=== PATIENT | female | born 1980 | race Asian ===

== ENCOUNTER 2017-10-13 08:58 | Inpatient (IN) | payer SELFPAY ==
[~2017-10-13] VITALS: Ht 165.1 cm; Wt 77.6 kg
[2017-10-13] MEDS ORDERED: IBUPROFEN 800 MG TAB PO PRN ×2 (09:40→11:00)
[2017-10-13 09:57] VITALS: BP 98/65
[2017-10-13] MEDS: LACTATED RINGERS 1,000 ML IV SCH ×2 (10:10→11:22)
[2017-10-13 10:18] LABS: HEMATOCRIT 40.3 % (36-48); HEMOGLOBIN 13.2 g/dL (12.0-16.0); MEAN CORPUSCULAR HEMOGLOBIN 27 pg (27-31); MEAN CORPUSCULAR HGB CONC 33 g/dL (33-37); MEAN CORPUSCULAR VOLUME 83.3 fL (80-94); PLATELET COUNT (AUTO) 245 K/uL (140-450); RED BLOOD CELL COUNT(AUTO) 4.84 MIL/uL (4.20-5.40); RED CELL DISTRIBUTION WIDTH 13.8 % (11.6-13.7); WHITE BLOOD COUNT (AUTO) 19.1 K/uL (4.8-10.8)
[2017-10-13 10:18] LABS: APPEARANCE,URINE TURBID (CLEAR); BILIRUBIN,URINE 1+ (NEGATIVE); COLOR,URINE YELLOW (YELLOW); LEUKOCYTE ESTERASE ,URINE NEGATIVE (NEGATIVE); NITRITE, URINE NEGATIVE (NEGATIVE); UGLUCOSE NEGATIVE (NEGATIVE)
[2017-10-13 10:30] LABS: ANION GAP 15.6 (8-16); CARBON DIOXIDE 18.9 mmol/L (21-32); CREATININE 0.6 mg/dL (0.6-1.3); POTASSIUM 3.5 mmol/L (3.5-5.1)
[2017-10-13 10:37] LABS: ALBUMIN 2.8 g/dL (3.4-5.0); TOTAL BILIRUBIN 1.3 mg/dL (0.0-1.0)
[2017-10-13 10:44] LABS: LYMPHOCYTES % (MANUAL) 5 % (20-46); MONOCYTES % (MANUAL) 4 % (5-12)
[2017-10-13] MEDS ORDERED: oxyCODONE/APAP 5/325 MG 1 TAB TAB PO PRN (11:00)
[2017-10-13] MEDS ORDERED: MEASLES, MUMPS, AND RUBELLA 1 VIAL SQVAC PRN (11:00)
[2017-10-13] MEDS ORDERED: SIMETHICONE 80 MG TAB.CHEW PO PRN (11:00)
[2017-10-13] MEDS ORDERED: METHYLERGONOVINE 0.2 MG/ML AMP IM PRN (11:00)
[2017-10-13] MEDS ORDERED: TRIMETHOBENZAMIDE 200 MG/2 ML SYR IM PRN (11:00)
[2017-10-13 11:26] LABS: BLOOD, URINE 1+ (NEGATIVE); RBC,URINE 0-5 (RARE) /HPF (0-5); WBC,URINE 0-5 (RARE) /HPF (0-5)
[2017-10-13] MEDS ORDERED: TRIAMCINOLONE 10 MG/ML 5ML VIAL ONE (11:35)
[2017-10-13] MEDS ORDERED: OXYTOCIN 10 UNITS/ML VIAL ONE (11:35)
[2017-10-13] MEDS ORDERED: MIDAZOLAM 2 MG/2 ML VIAL ONE (11:47)
[2017-10-13] MEDS ORDERED: BUPIVACAINE/DEXT 0.75% SPINAL 2 ML AMP INJ ONE (11:47)
[2017-10-13] MEDS ORDERED: MORPHINE PRES FREE 2 MG/2 ML 2 mL UD SYRINGE ONE (11:47)
[2017-10-13] MEDS ORDERED: OXYTOCIN 20 UNITS/LR PREMIX 1,000 ML IV ONE (11:53)
[2017-10-13] MEDS ORDERED: diphenhydrAMINE 50 MG/ML VIAL ONE (11:53)
[2017-10-13] MEDS ORDERED: ceFAZolin 1,000 MG VIAL IVP ONE (12:00)
[2017-10-13] MEDS ORDERED: OXYTOCIN 20 UNITS in LACTATED RINGERS 1,000 ML IV SCH (12:00)
[2017-10-13] MEDS ORDERED: CEFAZOLIN SODIUM 2 GM/D5W PM 50 ML IV SCH (12:00)
[2017-10-13] MEDS ORDERED: NALOXONE 0.4 MG/ML VIAL IVP PRN ×3 (12:20)
[2017-10-13] MEDS ORDERED: ONDANSETRON 4 MG/2 ML VIAL IVP PRN ×2 (12:20)
[2017-10-13] MEDS ORDERED: NALBUPHINE 10 MG/ML AMP IVP PRN (12:20)
[2017-10-13] MEDS ORDERED: MEPERIDINE 25 MG/ML SYR IVP PRN (12:20)
[2017-10-13] MEDS ORDERED: diphenhydrAMINE 50 MG/ML VIAL IVP PRN ×2 (12:20)
[2017-10-13] MEDS ORDERED: HYDROmorphone 1 MG/ML AMP IVP PRN (12:20)
[2017-10-13] MEDS ORDERED: ONDANSETRON 4 MG/2 ML VIAL ONE (12:49)
[2017-10-13] MEDS: OXYTOCIN 20 UNITS in LACTATED RINGERS 1,000 ML IV SCH ×2 (12:53→16:48)
[2017-10-13 13:15] LABS: PROTHROMBIN TIME 10.2 secs (10.8-13.4)
[2017-10-13] MEDS: DOCUSATE SOD/SENNA 50/8.6 MG 1 TAB PO SCH (20:04)
[2017-10-13] MEDS ORDERED: TEMAZEPAM 15 MG CAP PO PRN (21:00)
[2017-10-14] MEDS: KETOROLAC 30 MG/ML VIAL IM/IVP SCH ×2 (00:01→06:00)
[2017-10-14] MEDS ORDERED: OXYTOCIN 20 UNITS/LR PREMIX 1,000 ML IV ONE (00:53)
[2017-10-14] MEDS: OXYTOCIN 20 UNITS in LACTATED RINGERS 1,000 ML IV SCH ×2 (00:54→09:17)
[2017-10-14] MEDS ORDERED: OXYTOCIN 10 UNITS/ML VIAL ONE (09:13)
[2017-10-14 09:47] LABS: HEMATOCRIT 33.5 % (36-48); HEMOGLOBIN 10.8 g/dL (12.0-16.0); MEAN CORPUSCULAR HEMOGLOBIN 27 pg (27-31); MEAN CORPUSCULAR HGB CONC 32 g/dL (33-37); MEAN CORPUSCULAR VOLUME 83.9 fL (80-94); PLATELET COUNT (AUTO) 200 K/uL (140-450); RED CELL DISTRIBUTION WIDTH 13.8 % (11.6-13.7); WHITE BLOOD COUNT (AUTO) 19.6 K/uL (4.8-10.8)
[2017-10-14 10:34] LABS: BASOPHILS % (MANUAL) 0 % (0-2); EOSINOPHILS % (MANUAL) 0 % (0-4); LYMPHOCYTES % (MANUAL) 6 % (20-46); MONOCYTES % (MANUAL) 7 % (5-12)
[2017-10-14] MEDS: DOCUSATE SOD/SENNA 50/8.6 MG 1 TAB PO SCH (20:46)
--- NOTE | 2017-10-15 10:16 | NUR ---
PATIENT HAS BEEN SCREENED AND CATEGORIZED LOW NUTRITION RISK. PATIENT WILL BE SEEN WITHIN 7 DAYS OF ADMISSION. 10/19/[address]
[2017-10-15] MEDS: HYDROcodone/APAP 5/325 MG 1 TAB TAB PO PRN ×2 (11:37→20:21)
[2017-10-15] MEDS ORDERED: SODIUM PHOSPHATE 118 ML ENEM RC PRN (11:45)
[2017-10-15] MEDS: DOCUSATE SOD/SENNA 50/8.6 MG 1 TAB PO SCH (21:00)
[2017-10-16] MEDS: HYDROcodone/APAP 5/325 MG 1 TAB TAB PO PRN ×2 (03:33→11:08)
== END 2017-10-16 16:30 | disposition home or self-care (01) | DRG 765 ==
LOC: MLD 08:58 → MFCC 13:30
PROVIDERS: ADMIT Obstetrics & Gynecology; ATTEND Obstetrics & Gynecology
PROC: 10D00Z1 Extraction of Products of Conception, Low, Open Approach (ICD-10-PCS; principal; 2017-10-13 11:45)
PROC: 3E0234Z Introduction of Serum, Toxoid and Vaccine into Muscle, Percutaneous Approach (ICD-10-PCS; 2017-10-14)
PROC: 3E0134Z Introduction of Serum, Toxoid and Vaccine into Subcutaneous Tissue, Percutaneous Approach (ICD-10-PCS; 2017-10-15)
DX: O41.03X0 Oligohydramnios, third trimester, not applicable or unspecified (principal); K83.1 Obstruction of bile duct; O26.62 Liver and biliary tract disorders in childbirth; Z37.0 Single live birth; Z3A.37 37 weeks gestation of pregnancy; Z23 Encounter for immunization
CPT/HCPCS: 36415; 80053; 81001; 82248; 85025; 85610; 85730; 86592; 86762; 86886; 86900; 86901; 87340; 87653-90; 90707; 90715; J0690; J1200; J1885; J2250; J2270; J2405; J2590; J3301; J3490; J7060; J7120